=== PATIENT | female | born 1935 | race Caucasian/White ===

== ENCOUNTER 2022-03-24 14:04 | Inpatient (IN) | payer MEDICARE, BC ==
[~2022-03-24] VITALS: Ht 154.9 cm; Wt 67.6 kg
[2022-03-24 16:11] VITALS: BP 130/66
--- NOTE | 2022-03-24 17:00 | NUR ---
patient was a direct admit from [facility] arrived to unit at 1630 . patient is alert and oriented x 1-2 some confusion noted. patient is able to make some needs known. patient currently has an aspen collar in place, no skin breakdown noted, orders from [facility] are to keep collar on when out of bed and can remove in bed for short periods of time for c1 fracture. patient with limited neck movement, no c.o neck pain at this time. lungs are clear bilateral, rr even and non-labored, 0 episode of sob at this time. abdomen is soft and nontender, active bowel sounds present in 4 quadrants. no c.o bladder patient. patient also has an acute pelvic fracture used sliding board to transfer patient from [facility] to bed with 4 person transfer. patient is maximum assist at this time. upon admission vital signs wnl, no c/o pain. Spoke with DPMarilynn Orosco all questions answered. currently sister and caregiver at bedsides all needs met
[2022-03-24] MEDS ORDERED: REMEDY ESSENTIAL ZINC PASTE 113 GM TOP PRN (17:15)
[2022-03-24] MEDS ORDERED: OMEG1CAP GT (18:23)
[2022-03-24] MEDS ORDERED: IBAN150T16 PO (18:23)
[2022-03-24] MEDS ORDERED: MULT-213 PO (18:23)
[2022-03-24] MEDS ORDERED: FLUT16SP BNOSTRILS (18:23)
[2022-03-24] MEDS ORDERED: ESCI20TA PO (18:23)
[2022-03-24] MEDS ORDERED: ENOX40DI SQ (18:23)
[2022-03-24] MEDS ORDERED: ATOR20TA PO (18:23)
[2022-03-24] MEDS ORDERED: TIOT18CA3 IH (18:33)
[2022-03-24] MEDS ORDERED: ACET-73 PO (18:33)
[2022-03-24] MEDS ORDERED: PANT40TA49 PO (18:33)
[2022-03-24] MEDS ORDERED: SENN-301 PO (18:33)
[2022-03-24] MEDS ORDERED: GABA-532 PO (18:33)
[2022-03-24] MEDS ORDERED: QUET25TA PO ×2 (18:33)
[2022-03-24] MEDS ORDERED: CHOL1CAP6 PO (18:33)
[2022-03-24] MEDS ORDERED: LABE100T5 PO (18:33)
[2022-03-24] MEDS ORDERED: LOSA100T31 PO (18:33)
[2022-03-24] MEDS ORDERED: HYDR-894 PO (18:33)
[2022-03-24] MEDS ORDERED: LEVO75TA7 PO (18:33)
[2022-03-24 20:49] VITALS: BP 175/73
--- NOTE | 2022-03-24 21:00 | NUR ---
Resting in bed upon initial rounds. AAOx1-2 Confused and disoriented at time. VSS Admitted for pelvic fracture. Needs attended. Patient also has a C1 compression fracture, wears a cervical collar at all times. VSS. No acute distress noted. All due meds given without difficulty. On 3L O2 via nasal cannula, pulse ox 95% RA. Incontinent of bowel and bladder. Kept clean and dry. Fall precautions noted. Kept comfortable.
[2022-03-25 04:20] VITALS: BP 156/75
[2022-03-25 07:30] VITALS: BP 176/71
[2022-03-25] MEDS ORDERED: QUETIAPINE FUMARATE 25 MG TABLET PO PRN ×2 (10:15→10:45)
[2022-03-25] MEDS: hydrALAZINE HCL 25 MG TABLET PO SCH ×2 (10:38→22:03)
[2022-03-25] MEDS: LABETALOL HCL 100 MG TABLET PO SCH ×2 (10:46→20:37)
[2022-03-25] MEDS ORDERED: QUETIAPINE FUMARATE 25 MG TABLET PO SCH ×2 (11:00→18:00)
--- NOTE | 2022-03-25 11:18 | NUR ---
INTERDISCIPLINARY TEAM CONFERENCE
--- NOTE | 2022-03-25 11:30 | NUR ---
Received patient in bed resting upon initial rounds. AAOx1-2 Confused and disoriented at time. Admitted for pelvic fracture. Patient also has a C1 compression fracture,with order to wears a cervical collar at all times. No acute distress noted. All due Meds reconcile by DR Bautista Pt noted with high B/P=176/71 MD made aware Meds given as order . On 3L O2 via nasal cannula, o2 sat 97% . Incontinent of bowel and bladder had MB x1. instructional supervisor at bed side. Kept clean and dry. Fall precautions noted. Kept comfortable,will continue to monitor closely
[2022-03-25] MEDS: ESCITALOPRAM OXALATE 10 MG TABLET PO SCH (11:46)
[2022-03-25] MEDS: ENOXAPARIN SODIUM 30 MG/0.3 ML DISP.SYRIN SQ SCH (11:47)
[2022-03-25] MEDS ORDERED: ACETAMINOPHEN ES 500 MG TABLET- SA PATIENTS-PAIN ONLY PO SCH ×2 (12:00)
[2022-03-25 13:00] VITALS: BP 168/49
--- NOTE | 2022-03-25 13:00 | NUR ---
Pt resting in bed HOB 30 degree no s/s of acute distress B/P recheck 168/49 HR= 68 made aware
[2022-03-25] MEDS: GABAPENTIN 100 MG CAPSULE PO SCH ×2 (13:15→17:07)
[2022-03-25 16:00] VITALS: BP 177/77
--- NOTE | 2022-03-25 16:00 | NUR ---
Pt continue to monitor for high B/P =177/77 HR= 78 Pt noted with order for Losartan 100 mg given as per ordered DR Bautista called back with new order for Clonidine 0.1 mg PRN for SBP grater than 160. will continue to monitor closely for comfort and safety
[2022-03-25] MEDS: LOSARTAN POTASSIUM 50 MG TABLET PO SCH (16:06)
[2022-03-25] MEDS: QUETIAPINE FUMARATE 25 MG TABLET PO SCH (17:07)
--- NOTE | 2022-03-25 18:00 | NUR ---
Pt B/P recheck B/P moisés to b/P=127/64 HR =84 will continue to monitor closely
[2022-03-25 18:08] VITALS: BP 127/64
[2022-03-25 20:00] VITALS: BP 150/55
[2022-03-25] MEDS: ATORVASTATIN 20 MG TABLET PO SCH (20:36)
[2022-03-26 04:00] VITALS: BP 141/61
--- NOTE | 2022-03-26 04:59 | NUR ---
Awake alert and oriented x1-2 Confused and disoriented. Cervical collar at all times. Tolerated po meds well, crushed with apple sauce. BP 150/55 at beginning of shift. Amiodarone given. Fall precautions maintained. Needs attended. Incontinent of bowel and bladder. Kept clean and dry. BM noted this shift. Repositioned for comfort. Call little within reach. Remained stable throughout. No complaints presented so far. VSS.
[2022-03-26] MEDS: LEVOTHYROXINE SODIUM 75 MCG TABLET PO SCH (06:14)
[2022-03-26] MEDS: hydrALAZINE HCL 25 MG TABLET PO SCH ×3 (06:14→21:01)
[2022-03-26] MEDS: PANTOPRAZOLE SODIUM 40 MG TABLET.DR PO SCH (06:14)
[2022-03-26 08:00] VITALS: BP 142/48
[2022-03-26] MEDS ORDERED: LOSARTAN POTASSIUM 50 MG TABLET PO SCH (09:00)
[2022-03-26] MEDS ORDERED: Medication Not On Formulary EA (Escitalopram Oxalate (Lexapro) 20 MG) PO SCH (09:00)
[2022-03-26] MEDS: ENOXAPARIN SODIUM 30 MG/0.3 ML DISP.SYRIN SQ SCH ×2 (09:00→10:41)
[2022-03-26] MEDS: OMEGA-3 FATTY ACIDS/FISH OIL CAPSULE PO SCH (09:00)
[2022-03-26] MEDS ORDERED: Medication Not On Formulary EA (Losartan Potassium 100 MG) PO SCH (09:00)
[2022-03-26] MEDS: LOSARTAN POTASSIUM 50 MG TABLET PO SCH (09:17)
[2022-03-26] MEDS: GABAPENTIN 100 MG CAPSULE PO SCH ×3 (09:18→16:52)
[2022-03-26] MEDS: ESCITALOPRAM OXALATE 10 MG TABLET PO SCH (09:19)
[2022-03-26] MEDS: LABETALOL HCL 100 MG TABLET PO SCH ×2 (09:19→21:01)
[2022-03-26] MEDS: FLUTICASONE PROP NASAL SPRAY 16 GM BOTTLE NS SCH (09:20)
--- NOTE | 2022-03-26 09:28 | NUR ---
patient refused lovenox risks and benefits explained, still refused, patient verbalized understanding of it
[2022-03-26] MEDS: ACETAMINOPHEN ES 500 MG TABLET PO PRN (10:40)
[2022-03-26] MEDS: OXYCODONE HCL 5 MG TABLET PO PRN (11:09)
--- NOTE | 2022-03-26 11:20 | NUR ---
caregiver is bedside, patient allowed to administer Lovenox, administered, patient is noncompliant with therapy, and adls, were trying to change and clean, patient screamed and yelled, stated " get out of room" used profane language toward staff.
[2022-03-26 16:00] VITALS: BP_SYST 113; BP_SYST 143; BP_DIAS 56; BP_DIAS 81
[2022-03-26] MEDS: QUETIAPINE FUMARATE 25 MG TABLET PO SCH (17:02)
--- NOTE | 2022-03-26 19:00 | NUR ---
Received patient on bed, alert, no complaint of pain, with calm behavior at this time, not in labored breathing, with cervical collar in place, safety precautions provided, call little placed within reach, with oxygen at 3L via NC, saturating at 95-97%, titrated at 2L/min to continue to monitor.
[2022-03-26 20:34] VITALS: BP 137/57
[2022-03-26] MEDS: ATORVASTATIN 20 MG TABLET PO SCH (21:00)
[2022-03-27 04:25] VITALS: BP 160/71
--- NOTE | 2022-03-27 05:40 | NUR ---
Patient O2 saturation within 95-97% with 2L via nasal cannula. Slept well , Logrolling done for repositioning. Diaper changed, skin intact.
[2022-03-27] MEDS: hydrALAZINE HCL 25 MG TABLET PO SCH ×3 (06:01→22:37)
[2022-03-27] MEDS: PANTOPRAZOLE SODIUM 40 MG TABLET.DR PO SCH (06:02)
[2022-03-27] MEDS: LEVOTHYROXINE SODIUM 75 MCG TABLET PO SCH (06:02)
[2022-03-27 06:34] VITALS: BP 145/75
[2022-03-27 07:38] VITALS: BP 131/68
[2022-03-27] MEDS: FLUTICASONE PROP NASAL SPRAY 16 GM BOTTLE NS SCH (09:08)
[2022-03-27] MEDS: LOSARTAN POTASSIUM 50 MG TABLET PO SCH (09:09)
[2022-03-27] MEDS: OMEGA-3 FATTY ACIDS/FISH OIL CAPSULE PO SCH (09:09)
[2022-03-27] MEDS: ESCITALOPRAM OXALATE 10 MG TABLET PO SCH (09:09)
[2022-03-27] MEDS: GABAPENTIN 100 MG CAPSULE PO SCH ×3 (09:09→17:14)
[2022-03-27] MEDS: LABETALOL HCL 100 MG TABLET PO SCH ×2 (09:10→20:36)
[2022-03-27] MEDS: ENOXAPARIN SODIUM 30 MG/0.3 ML DISP.SYRIN SQ SCH (09:11)
--- NOTE | 2022-03-27 14:37 | NUR ---
INDIVIDUALIZED PLAN OF CARE
[2022-03-27 15:03] VITALS: BP 141/56
--- NOTE | 2022-03-27 15:06 | NUR ---
Received patient on bed, alert oriented 1-2 with periods of confusion, denies of pain,when asked , respiration even and unlabored no SOB noted, with cervical collar in place, safety precautions provided, call little placed within reach, with oxygen at 3L via NC, saturating at 95-97%, titrated at 2L/Min will continue to monitor Pt refused PT at this time attempt x 3 continue to refused got upset and got aggressive and verbally abused.reassure Pt and will monitor home care provider at bed side .
[2022-03-27] MEDS: QUETIAPINE FUMARATE 25 MG TABLET PO SCH (17:14)
[2022-03-27 20:14] VITALS: BP 143/56
[2022-03-27] MEDS: ATORVASTATIN 20 MG TABLET PO SCH (20:36)
[2022-03-28 04:33] VITALS: BP 185/69
--- NOTE | 2022-03-28 04:44 | NUR ---
Patient BP 185/69, HR 78, recheck BP 161/65, Patient refused to take medication for elevated BP, patient verbally aggressive, uncooperative with care, despite explanation the need for BP meds and risk/benefit of the medication refused the meds, gets agitated, and verbally abusive. will cont to monitor.
--- NOTE | 2022-03-28 05:55 | NUR ---
Patient change her mind, and took all her medications, BP meds for elevated BP, patient has episode of resistive with care, uncooperative with care, explained procedure before the care, but still refused, handle patient gently, kept clean dry and comfortable.
--- NOTE | 2022-03-28 05:58 | NUR ---
Patient alert but forgetful, will continue to monitor BP, patient denies pain when ask if she in pain, cont to monitor.
[2022-03-28] MEDS: hydrALAZINE HCL 25 MG TABLET PO SCH ×3 (06:01→22:38)
[2022-03-28] MEDS: LEVOTHYROXINE SODIUM 75 MCG TABLET PO SCH (06:01)
[2022-03-28] MEDS: PANTOPRAZOLE SODIUM 40 MG TABLET.DR PO SCH (06:02)
[2022-03-28 06:59] VITALS: BP 155/59
[2022-03-28] MEDS: OXYCODONE HCL 5 MG TABLET PO PRN (07:50)
[2022-03-28] MEDS: ESCITALOPRAM OXALATE 10 MG TABLET PO SCH (08:07)
[2022-03-28] MEDS: LOSARTAN POTASSIUM 50 MG TABLET PO SCH (08:08)
[2022-03-28] MEDS: LABETALOL HCL 100 MG TABLET PO SCH ×2 (08:08→20:11)
[2022-03-28] MEDS: FLUTICASONE PROP NASAL SPRAY 16 GM BOTTLE NS SCH (08:09)
[2022-03-28] MEDS: OMEGA-3 FATTY ACIDS/FISH OIL CAPSULE PO SCH (08:09)
[2022-03-28] MEDS: GABAPENTIN 100 MG CAPSULE PO SCH ×3 (08:09→16:08)
[2022-03-28] MEDS: ENOXAPARIN SODIUM 30 MG/0.3 ML DISP.SYRIN SQ SCH (08:10)
[2022-03-28 09:03] VITALS: BP 108/42
[2022-03-28] MEDS: MIRALAX 17 GM POWD.PACK PO PRN (14:36)
[2022-03-28] MEDS: SENNOSIDES/DOCUSATE SODIUM TABLET PO PRN (14:36)
[2022-03-28 15:05] VITALS: BP 131/56
--- NOTE | 2022-03-28 19:31 | NUR ---
Received patient on asleep. Shows no signs of labored breathing, with cervical collar in place. Safety precautions initiated. Will continue to monitor.
[2022-03-28] MEDS: ATORVASTATIN 20 MG TABLET PO SCH (20:11)
[2022-03-28 20:22] VITALS: BP 163/84
[2022-03-29 04:24] VITALS: BP 164/72
[2022-03-29] MEDS: hydrALAZINE HCL 25 MG TABLET PO SCH ×3 (06:23→22:16)
[2022-03-29] MEDS: PANTOPRAZOLE SODIUM 40 MG TABLET.DR PO SCH (06:23)
[2022-03-29] MEDS: LEVOTHYROXINE SODIUM 75 MCG TABLET PO SCH (06:25)
--- NOTE | 2022-03-29 06:39 | NUR ---
Patient slept through the night with frequent episodes of confusion. IV access patent and intact. Compliant with patient medication. Elevated BP noted, scheduled Hydralazine given as ordered. Safety precautions maintained. Will endorse to day shift.
[2022-03-29 07:30] VITALS: BP 149/44
[2022-03-29] MEDS ORDERED: MODAFINIL 100 MG TABLET PO SCH (09:00)
[2022-03-29] MEDS: LOSARTAN POTASSIUM 50 MG TABLET PO SCH (09:20)
[2022-03-29] MEDS: OMEGA-3 FATTY ACIDS/FISH OIL CAPSULE PO SCH (09:20)
[2022-03-29] MEDS: FLUTICASONE PROP NASAL SPRAY 16 GM BOTTLE NS SCH (09:20)
[2022-03-29] MEDS: LABETALOL HCL 100 MG TABLET PO SCH ×2 (09:22→20:37)
[2022-03-29] MEDS: MODAFINIL 100 MG TABLET PO SCH (09:22)
[2022-03-29] MEDS: ESCITALOPRAM OXALATE 10 MG TABLET PO SCH (09:22)
[2022-03-29] MEDS: ENOXAPARIN SODIUM 30 MG/0.3 ML DISP.SYRIN SQ SCH (09:23)
[2022-03-29] MEDS: GABAPENTIN 100 MG CAPSULE PO SCH ×3 (09:59→16:48)
[2022-03-29 16:00] VITALS: BP 141/69
--- NOTE | 2022-03-29 17:47 | NUR ---
Patient is alert, with episodes of confusion. No complain of pain. Compliant with medications. Attended to her needs. Fall precaution maintained. Neck collar in place. brick machine operator at bedside.
[2022-03-29] MEDS: MIRALAX 17 GM POWD.PACK PO PRN (18:45)
[2022-03-29 19:07] LABS: HEMATOCRIT 29.9 % (31.2-41.9); MEAN CORPUSCULAR HEMOGLOBIN 28.6 uug (24.7-32.8); MEAN CORPUSCULAR VOLUME 85.2 fL (75.5-95.3); PLATELET COUNT (AUTO) 302 K/uL (179-408)
[2022-03-29 19:10] LABS: CARBON DIOXIDE 27 mmol/L (21-32); CHLORIDE 96 mmol/L (98-107); CREATININE 1.8 mg/dL (0.6-1.3); GLUCOSE 115 mg/dL (74-106); UREA NITROGEN, BLOOD 45 mg/dL (7-18)
--- NOTE | 2022-03-29 19:30 | NUR ---
NSG: Received patient lying on bed, alert and oriented to name only, no complaint of pain, with calm behavior at this time, respiration even and unlabored. patient noted with cervical collar in neck, safety precautions provided, call little placed within reach. continue to monitor.
[2022-03-29 20:27] VITALS: BP 169/58
[2022-03-29] MEDS: ATORVASTATIN 20 MG TABLET PO SCH (20:36)
[2022-03-29] MEDS: SENNOSIDES/DOCUSATE SODIUM TABLET PO PRN (20:36)
[2022-03-30 04:16] VITALS: BP 161/64
--- NOTE | 2022-03-30 04:30 | NUR ---
clonidine 0.1 mg po prn given for b/p 161/64 hr 76
[2022-03-30] MEDS: CLONIDINE HCL 0.1 MG TABLET PO PRN (04:33)
[2022-03-30] MEDS: PANTOPRAZOLE SODIUM 40 MG TABLET.DR PO SCH (06:03)
[2022-03-30] MEDS: LEVOTHYROXINE SODIUM 75 MCG TABLET PO SCH (06:03)
[2022-03-30] MEDS: hydrALAZINE HCL 25 MG TABLET PO SCH ×3 (06:03→21:01)
--- NOTE | 2022-03-30 06:09 | NUR ---
slept well through the night. no c/o pain or discomfort at this time. call light w/in reach.
[2022-03-30 07:31] VITALS: BP 122/60
[2022-03-30] MEDS: OMEGA-3 FATTY ACIDS/FISH OIL CAPSULE PO SCH (08:41)
[2022-03-30] MEDS: GABAPENTIN 100 MG CAPSULE PO SCH ×3 (08:41→17:29)
[2022-03-30] MEDS: LABETALOL HCL 100 MG TABLET PO SCH ×2 (08:41→21:01)
[2022-03-30] MEDS: ESCITALOPRAM OXALATE 10 MG TABLET PO SCH (08:41)
[2022-03-30] MEDS: MODAFINIL 100 MG TABLET PO SCH (08:42)
[2022-03-30] MEDS: FLUTICASONE PROP NASAL SPRAY 16 GM BOTTLE NS SCH (08:42)
[2022-03-30] MEDS: LOSARTAN POTASSIUM 50 MG TABLET PO SCH (08:42)
[2022-03-30] MEDS: ENOXAPARIN SODIUM 30 MG/0.3 ML DISP.SYRIN SQ SCH (08:44)
[2022-03-30 16:00] VITALS: BP 156/57
[2022-03-30 20:00] VITALS: BP 156/61
[2022-03-30] MEDS: ATORVASTATIN 20 MG TABLET PO SCH (20:59)
[2022-03-31 04:00] VITALS: BP 152/61
[2022-03-31] MEDS: hydrALAZINE HCL 25 MG TABLET PO SCH ×3 (05:15→21:32)
[2022-03-31] MEDS: LEVOTHYROXINE SODIUM 75 MCG TABLET PO SCH (05:18)
[2022-03-31] MEDS: PANTOPRAZOLE SODIUM 40 MG TABLET.DR PO SCH (05:18)
[2022-03-31 07:33] VITALS: BP 165/65
[2022-03-31] MEDS: ENOXAPARIN SODIUM 30 MG/0.3 ML DISP.SYRIN SQ SCH (08:47)
[2022-03-31] MEDS: MODAFINIL 100 MG TABLET PO SCH (08:48)
[2022-03-31] MEDS: ESCITALOPRAM OXALATE 10 MG TABLET PO SCH (08:48)
[2022-03-31] MEDS: FLUTICASONE PROP NASAL SPRAY 16 GM BOTTLE NS SCH (08:48)
[2022-03-31] MEDS: LABETALOL HCL 100 MG TABLET PO SCH ×2 (08:49→20:22)
[2022-03-31] MEDS: GABAPENTIN 100 MG CAPSULE PO SCH ×3 (08:49→16:30)
[2022-03-31] MEDS: LOSARTAN POTASSIUM 50 MG TABLET PO SCH (08:49)
[2022-03-31] MEDS: OMEGA-3 FATTY ACIDS/FISH OIL CAPSULE PO SCH (08:50)
[2022-03-31 10:52] VITALS: BP 124/59
[2022-03-31 14:22] VITALS: BP 139/75
[2022-03-31 16:00] VITALS: BP 132/49
[2022-03-31] MEDS: ENSURE ENLIVE (VAN) 240 ML LIQUID PO SCH (16:30)
--- NOTE | 2022-03-31 18:30 | NUR ---
Patient remained stable. no acute distress identified. No pain noted. Safety measures maintained. Kept call light within reach. Frequent visual checks done. All needs attends. due meds given. will endorse to the next shift for continuity of care.
[2022-03-31 20:00] VITALS: BP 135/52
[2022-03-31] MEDS: ATORVASTATIN 20 MG TABLET PO SCH (21:32)
[2022-04-01 04:00] VITALS: BP 146/60
[2022-04-01] MEDS: hydrALAZINE HCL 25 MG TABLET PO SCH ×3 (05:38→21:07)
[2022-04-01] MEDS: PANTOPRAZOLE SODIUM 40 MG TABLET.DR PO SCH (05:38)
[2022-04-01] MEDS: LEVOTHYROXINE SODIUM 75 MCG TABLET PO SCH (05:38)
[2022-04-01 08:01] VITALS: BP 126/63
--- NOTE | 2022-04-01 08:41 | NUR ---
INTERDISCIPLINARY TEAM CONFERENCE
[2022-04-01] MEDS: LABETALOL HCL 100 MG TABLET PO SCH ×2 (09:00→20:38)
[2022-04-01] MEDS: LOSARTAN POTASSIUM 50 MG TABLET PO SCH (09:00)
[2022-04-01] MEDS: MODAFINIL 100 MG TABLET PO SCH (09:00)
[2022-04-01] MEDS: GABAPENTIN 100 MG CAPSULE PO SCH ×3 (09:00→16:54)
[2022-04-01] MEDS: ESCITALOPRAM OXALATE 10 MG TABLET PO SCH (09:00)
[2022-04-01] MEDS: OMEGA-3 FATTY ACIDS/FISH OIL CAPSULE PO SCH (09:00)
[2022-04-01] MEDS: ENOXAPARIN SODIUM 30 MG/0.3 ML DISP.SYRIN SQ SCH (09:13)
[2022-04-01] MEDS: FLUTICASONE PROP NASAL SPRAY 16 GM BOTTLE NS SCH (09:14)
[2022-04-01] MEDS: ENSURE ENLIVE (VAN) 240 ML LIQUID PO SCH ×2 (09:14→16:54)
[2022-04-01] MEDS: ACETAMINOPHEN ES 500 MG TABLET PO PRN (12:13)
[2022-04-01 15:55] VITALS: BP 164/52
--- NOTE | 2022-04-01 18:39 | NUR ---
No acute distress identified. Safety measures maintained. Kept call light within reach. Frequent visual checks done. All needs attends. due meds given. will endorse to the next shift for continuity of care.
[2022-04-01 20:00] VITALS: BP 132/46
[2022-04-01] MEDS: ATORVASTATIN 20 MG TABLET PO SCH (20:38)
[2022-04-02 04:00] VITALS: BP 137/50
[2022-04-02] MEDS: hydrALAZINE HCL 25 MG TABLET PO SCH ×3 (06:12→21:13)
[2022-04-02] MEDS: LEVOTHYROXINE SODIUM 75 MCG TABLET PO SCH (06:12)
[2022-04-02] MEDS: PANTOPRAZOLE SODIUM 40 MG TABLET.DR PO SCH (06:12)
--- NOTE | 2022-04-02 06:30 | NUR ---
Pt slept intermittently throughout the night, no significant changes noted. Due meds given and tolerated well. All needs attended. Call light placed within reach. Frequent visual checks done. Will endorse to next shift for continuity of care.
[2022-04-02 07:17] LABS: CARBON DIOXIDE 28 mmol/L (21-32); CHLORIDE 99 mmol/L (98-107); CREATININE 1.6 mg/dL (0.6-1.3); GLUCOSE 98 mg/dL (74-106); MAGNESIUM 2.3 mg/dL (1.8-2.4); POTASSIUM 5.1 mmol/L (3.5-5.1); UREA NITROGEN, BLOOD 41 mg/dL (7-18); URIC ACID 5.8 mg/dL (2.6-6.0)
[2022-04-02 08:04] VITALS: BP 123/63
[2022-04-02 08:20] LABS: THYROID STIMULATING HORMONE 2.745 mIU/mL (0.358-3.740)
[2022-04-02] MEDS: HYDROCODONE/APAP 10-325 MG TABLET PO SCH (09:00)
[2022-04-02] MEDS: FLUTICASONE PROP NASAL SPRAY 16 GM BOTTLE NS SCH (09:30)
[2022-04-02] MEDS: ESCITALOPRAM OXALATE 10 MG TABLET PO SCH (09:30)
[2022-04-02] MEDS: OMEGA-3 FATTY ACIDS/FISH OIL CAPSULE PO SCH (09:30)
[2022-04-02] MEDS: MODAFINIL 100 MG TABLET PO SCH (09:30)
[2022-04-02] MEDS: LABETALOL HCL 100 MG TABLET PO SCH ×2 (09:32→20:52)
[2022-04-02] MEDS: GABAPENTIN 100 MG CAPSULE PO SCH ×3 (09:32→16:39)
[2022-04-02] MEDS: LOSARTAN POTASSIUM 50 MG TABLET PO SCH (09:33)
[2022-04-02] MEDS: ENOXAPARIN SODIUM 30 MG/0.3 ML DISP.SYRIN SQ SCH (09:36)
[2022-04-02] MEDS: ENSURE ENLIVE (VAN) 240 ML LIQUID PO SCH ×2 (09:40→17:54)
[2022-04-02] MEDS ORDERED: HYDROCODONE/APAP 10-325 MG TABLET PO PRN (13:00)
[2022-04-02] MEDS: OXYCODONE HCL 5 MG TABLET PO PRN (14:42)
[2022-04-02 16:02] VITALS: BP 129/67
[2022-04-02 20:16] VITALS: BP 101/50
[2022-04-02] MEDS: ATORVASTATIN 20 MG TABLET PO SCH (20:51)
[2022-04-03 04:00] VITALS: BP 177/84
[2022-04-03] MEDS: LEVOTHYROXINE SODIUM 75 MCG TABLET PO SCH (06:11)
[2022-04-03] MEDS: PANTOPRAZOLE SODIUM 40 MG TABLET.DR PO SCH (06:12)
[2022-04-03] MEDS: hydrALAZINE HCL 25 MG TABLET PO SCH ×3 (06:12→21:06)
[2022-04-03] MEDS: LABETALOL HCL 100 MG TABLET PO SCH ×2 (09:41→20:19)
[2022-04-03] MEDS: OMEGA-3 FATTY ACIDS/FISH OIL CAPSULE PO SCH (09:41)
[2022-04-03] MEDS: LOSARTAN POTASSIUM 50 MG TABLET PO SCH (09:41)
[2022-04-03] MEDS: GABAPENTIN 100 MG CAPSULE PO SCH ×3 (09:42→17:38)
[2022-04-03] MEDS: HYDROCODONE/APAP 10-325 MG TABLET PO SCH (09:42)
[2022-04-03] MEDS: ESCITALOPRAM OXALATE 10 MG TABLET PO SCH (09:42)
[2022-04-03] MEDS: ENSURE ENLIVE (VAN) 240 ML LIQUID PO SCH ×2 (09:42→17:39)
[2022-04-03] MEDS: MODAFINIL 100 MG TABLET PO SCH (09:42)
[2022-04-03] MEDS: ENOXAPARIN SODIUM 30 MG/0.3 ML DISP.SYRIN SQ SCH (09:43)
[2022-04-03] MEDS: FLUTICASONE PROP NASAL SPRAY 16 GM BOTTLE NS SCH (09:44)
[2022-04-03 20:00] VITALS: BP 122/56
[2022-04-03] MEDS: ATORVASTATIN 20 MG TABLET PO SCH (20:18)
[2022-04-04 04:00] VITALS: BP 112/91
[2022-04-04] MEDS: hydrALAZINE HCL 25 MG TABLET PO SCH ×3 (06:00→21:12)
[2022-04-04] MEDS: PANTOPRAZOLE SODIUM 40 MG TABLET.DR PO SCH (06:06)
[2022-04-04] MEDS: LEVOTHYROXINE SODIUM 75 MCG TABLET PO SCH (06:06)
[2022-04-04 08:00] VITALS: BP 188/73
[2022-04-04] MEDS: GABAPENTIN 100 MG CAPSULE PO SCH ×3 (09:08→17:08)
[2022-04-04] MEDS: HYDROCODONE/APAP 10-325 MG TABLET PO SCH (09:08)
[2022-04-04] MEDS: OMEGA-3 FATTY ACIDS/FISH OIL CAPSULE PO SCH (09:08)
[2022-04-04] MEDS: ESCITALOPRAM OXALATE 10 MG TABLET PO SCH (09:09)
[2022-04-04] MEDS: LABETALOL HCL 100 MG TABLET PO SCH ×2 (09:09→20:25)
[2022-04-04] MEDS: MODAFINIL 100 MG TABLET PO SCH (09:09)
[2022-04-04] MEDS: LOSARTAN POTASSIUM 50 MG TABLET PO SCH (09:10)
[2022-04-04] MEDS: ENOXAPARIN SODIUM 30 MG/0.3 ML DISP.SYRIN SQ SCH (09:11)
[2022-04-04] MEDS: ENSURE ENLIVE (VAN) 240 ML LIQUID PO SCH ×2 (09:11→17:08)
[2022-04-04] MEDS: FLUTICASONE PROP NASAL SPRAY 16 GM BOTTLE NS SCH (09:12)
[2022-04-04 16:37] VITALS: BP 147/52
--- NOTE | 2022-04-04 19:15 | NUR ---
Received patient on bed, awake, alert, not in respiratory distress, with cervical collar in placed. No complaint of pain. Safety precautions provided, call light placed within reach .
[2022-04-04] MEDS: ATORVASTATIN 20 MG TABLET PO SCH (20:24)
[2022-04-04 20:27] VITALS: BP 157/43
--- NOTE | 2022-04-05 01:00 | NUR ---
patient woke up from sleeping, screaming that somebody slap her, reoriented patient to place, time and event happened. Patient went back to sleep. in fair condition.
[2022-04-05 04:30] VITALS: BP 175/65
--- NOTE | 2022-04-05 05:51 | NUR ---
Perineal care done, repositioned for comfort, no complaint of pain. Patient in fair condition.
[2022-04-05] MEDS: PANTOPRAZOLE SODIUM 40 MG TABLET.DR PO SCH (06:11)
[2022-04-05] MEDS: hydrALAZINE HCL 25 MG TABLET PO SCH ×3 (06:11→21:05)
[2022-04-05] MEDS: LEVOTHYROXINE SODIUM 75 MCG TABLET PO SCH (06:17)
[2022-04-05 08:02] VITALS: BP 170/66
[2022-04-05] MEDS: MODAFINIL 100 MG TABLET PO SCH (08:45)
[2022-04-05] MEDS: OMEGA-3 FATTY ACIDS/FISH OIL CAPSULE PO SCH (08:47)
[2022-04-05] MEDS: HYDROCODONE/APAP 10-325 MG TABLET PO SCH (08:47)
[2022-04-05] MEDS: GABAPENTIN 100 MG CAPSULE PO SCH ×3 (08:51→17:59)
[2022-04-05] MEDS: ESCITALOPRAM OXALATE 10 MG TABLET PO SCH (08:51)
[2022-04-05] MEDS: LOSARTAN POTASSIUM 50 MG TABLET PO SCH (08:52)
[2022-04-05] MEDS: FLUTICASONE PROP NASAL SPRAY 16 GM BOTTLE NS SCH (08:53)
[2022-04-05] MEDS: ENSURE ENLIVE (VAN) 240 ML LIQUID PO SCH ×2 (08:53→17:59)
[2022-04-05] MEDS: LABETALOL HCL 100 MG TABLET PO SCH ×2 (08:54→20:41)
[2022-04-05] MEDS: ENOXAPARIN SODIUM 30 MG/0.3 ML DISP.SYRIN SQ SCH (08:55)
[2022-04-05 16:24] VITALS: BP 149/52
--- NOTE | 2022-04-05 19:15 | NUR ---
Received patient on bed, watching TV, alert, oriented x2-3, with episode of confusion, with cervical collar in place at all times. Safety precautions provided, Call light within reach.
[2022-04-05 20:08] VITALS: BP 141/66
[2022-04-05] MEDS: ATORVASTATIN 20 MG TABLET PO SCH (20:41)
[2022-04-05] MEDS: ACETAMINOPHEN ES 500 MG TABLET PO PRN (20:42)
[2022-04-06 04:50] VITALS: BP 169/74
--- NOTE | 2022-04-06 05:38 | NUR ---
Slept well for 6 hours, no signs of distress. Perineal care done, mepilex applied to buttocks area for protection, no complaint of pain, repositioned for comfort.
[2022-04-06] MEDS: LEVOTHYROXINE SODIUM 75 MCG TABLET PO SCH (06:18)
[2022-04-06] MEDS: PANTOPRAZOLE SODIUM 40 MG TABLET.DR PO SCH (06:18)
[2022-04-06] MEDS: hydrALAZINE HCL 25 MG TABLET PO SCH ×3 (06:18→21:05)
[2022-04-06] MEDS: OXYCODONE HCL 5 MG TABLET PO PRN (06:34)
[2022-04-06 07:55] VITALS: BP 151/73
[2022-04-06] MEDS: MODAFINIL 100 MG TABLET PO SCH (10:13)
[2022-04-06] MEDS: FLUTICASONE PROP NASAL SPRAY 16 GM BOTTLE NS SCH (10:13)
[2022-04-06] MEDS: LOSARTAN POTASSIUM 50 MG TABLET PO SCH (10:17)
[2022-04-06] MEDS: GABAPENTIN 100 MG CAPSULE PO SCH ×3 (10:18→18:14)
[2022-04-06] MEDS: ESCITALOPRAM OXALATE 10 MG TABLET PO SCH (10:18)
[2022-04-06] MEDS: OMEGA-3 FATTY ACIDS/FISH OIL CAPSULE PO SCH (10:18)
[2022-04-06] MEDS: HYDROCODONE/APAP 10-325 MG TABLET PO SCH (10:18)
[2022-04-06] MEDS: ENOXAPARIN SODIUM 30 MG/0.3 ML DISP.SYRIN SQ SCH (10:19)
[2022-04-06] MEDS: LABETALOL HCL 100 MG TABLET PO SCH ×2 (10:22→20:42)
[2022-04-06] MEDS: ENSURE ENLIVE (VAN) 240 ML LIQUID PO SCH ×2 (10:24→18:18)
[2022-04-06 16:03] VITALS: BP 114/53
--- NOTE | 2022-04-06 19:15 | NUR ---
Received patient on bed. alert, no shortness of breath noted, with cervical collar in place at all times. Safety precautions provided, call light within reach.
[2022-04-06 20:18] VITALS: BP 131/55
[2022-04-06] MEDS: ACETAMINOPHEN ES 500 MG TABLET PO PRN (20:41)
[2022-04-06] MEDS: ATORVASTATIN 20 MG TABLET PO SCH (20:42)
[2022-04-07 04:18] VITALS: BP 131/60
--- NOTE | 2022-04-07 05:28 | NUR ---
Patient slept well, Repositioned for comfort. Compliant with medications. No complaint of pain. Patient in fair condition.
[2022-04-07] MEDS: hydrALAZINE HCL 25 MG TABLET PO SCH ×3 (06:13→21:04)
[2022-04-07] MEDS: LEVOTHYROXINE SODIUM 75 MCG TABLET PO SCH (06:13)
[2022-04-07] MEDS: PANTOPRAZOLE SODIUM 40 MG TABLET.DR PO SCH (06:13)
[2022-04-07 08:03] VITALS: BP 158/65
[2022-04-07] MEDS: ENOXAPARIN SODIUM 30 MG/0.3 ML DISP.SYRIN SQ SCH (08:09)
[2022-04-07] MEDS: GABAPENTIN 100 MG CAPSULE PO SCH ×3 (08:51→16:31)
[2022-04-07] MEDS: HYDROCODONE/APAP 10-325 MG TABLET PO SCH (08:51)
[2022-04-07] MEDS: OMEGA-3 FATTY ACIDS/FISH OIL CAPSULE PO SCH (08:51)
[2022-04-07] MEDS: ESCITALOPRAM OXALATE 10 MG TABLET PO SCH (08:51)
[2022-04-07] MEDS: MODAFINIL 100 MG TABLET PO SCH (08:53)
[2022-04-07] MEDS: LOSARTAN POTASSIUM 50 MG TABLET PO SCH (08:53)
[2022-04-07] MEDS: FLUTICASONE PROP NASAL SPRAY 16 GM BOTTLE NS SCH (08:53)
[2022-04-07] MEDS: ENSURE ENLIVE (VAN) 240 ML LIQUID PO SCH ×2 (08:54→16:31)
[2022-04-07] MEDS: LABETALOL HCL 100 MG TABLET PO SCH ×2 (09:02→21:04)
[2022-04-07] MEDS: MIRALAX 17 GM POWD.PACK PO PRN (09:03)
[2022-04-07 16:35] VITALS: BP 147/46
--- NOTE | 2022-04-07 17:21 | NUR ---
no events noted during shift
[2022-04-07 20:12] VITALS: BP 120/50
[2022-04-07] MEDS: ATORVASTATIN 20 MG TABLET PO SCH (21:03)
[2022-04-08 04:15] VITALS: BP 132/57
[2022-04-08] MEDS: PANTOPRAZOLE SODIUM 40 MG TABLET.DR PO SCH (05:35)
[2022-04-08] MEDS: LEVOTHYROXINE SODIUM 75 MCG TABLET PO SCH (05:36)
[2022-04-08] MEDS: hydrALAZINE HCL 25 MG TABLET PO SCH ×3 (05:36→21:39)
[2022-04-08 06:54] LABS: HEMATOCRIT 29.1 % (31.2-41.9); MEAN CORPUSCULAR HEMOGLOBIN 28.8 uug (24.7-32.8); MEAN CORPUSCULAR VOLUME 84.6 fL (75.5-95.3); PLATELET COUNT (AUTO) 467 K/uL (179-408)
[2022-04-08 07:23] LABS: CARBON DIOXIDE 28 mmol/L (21-32); CHLORIDE 98 mmol/L (98-107); CREATININE 1.6 mg/dL (0.6-1.3); GLUCOSE 99 mg/dL (74-106); POTASSIUM 4.9 mmol/L (3.5-5.1); UREA NITROGEN, BLOOD 42 mg/dL (7-18)
[2022-04-08] MEDS: ENOXAPARIN SODIUM 30 MG/0.3 ML DISP.SYRIN SQ SCH (08:17)
[2022-04-08] MEDS: MIRALAX 17 GM POWD.PACK PO PRN (08:18)
[2022-04-08] MEDS: GABAPENTIN 100 MG CAPSULE PO SCH ×3 (08:18→16:48)
[2022-04-08] MEDS: OMEGA-3 FATTY ACIDS/FISH OIL CAPSULE PO SCH (08:18)
[2022-04-08] MEDS: LABETALOL HCL 100 MG TABLET PO SCH ×2 (08:19→20:39)
[2022-04-08] MEDS: MODAFINIL 100 MG TABLET PO SCH (08:20)
[2022-04-08] MEDS: LOSARTAN POTASSIUM 50 MG TABLET PO SCH (08:20)
[2022-04-08] MEDS: ESCITALOPRAM OXALATE 10 MG TABLET PO SCH (08:20)
[2022-04-08] MEDS: HYDROCODONE/APAP 10-325 MG TABLET PO SCH (08:20)
[2022-04-08] MEDS: ENSURE ENLIVE (VAN) 240 ML LIQUID PO SCH ×2 (08:21→16:48)
[2022-04-08] MEDS: FLUTICASONE PROP NASAL SPRAY 16 GM BOTTLE NS SCH (08:21)
[2022-04-08 08:30] VITALS: BP 146/48
--- NOTE | 2022-04-08 13:41 | NUR ---
INTERDISCIPLINARY TEAM CONFERENCE
[2022-04-08 17:18] VITALS: BP 142/58
--- NOTE | 2022-04-08 18:47 | NUR ---
patient is alert, oriented x2, with episodes of confusion at times, reoriented, no events noted during shift.
[2022-04-08 20:00] VITALS: BP 110/65
[2022-04-08] MEDS: ATORVASTATIN 20 MG TABLET PO SCH (20:39)
[2022-04-09 04:39] VITALS: BP 154/65
[2022-04-09] MEDS: LEVOTHYROXINE SODIUM 75 MCG TABLET PO SCH (05:52)
[2022-04-09] MEDS: PANTOPRAZOLE SODIUM 40 MG TABLET.DR PO SCH (05:52)
[2022-04-09] MEDS: hydrALAZINE HCL 25 MG TABLET PO SCH ×3 (05:52→22:05)
[2022-04-09] MEDS: HYDROCODONE/APAP 10-325 MG TABLET PO SCH (08:02)
[2022-04-09] MEDS: MODAFINIL 100 MG TABLET PO SCH (08:02)
[2022-04-09] MEDS: OMEGA-3 FATTY ACIDS/FISH OIL CAPSULE PO SCH (08:02)
[2022-04-09] MEDS: ESCITALOPRAM OXALATE 10 MG TABLET PO SCH (08:03)
[2022-04-09] MEDS: LOSARTAN POTASSIUM 50 MG TABLET PO SCH (08:03)
[2022-04-09] MEDS: LABETALOL HCL 100 MG TABLET PO SCH ×2 (08:03→20:56)
[2022-04-09] MEDS: GABAPENTIN 100 MG CAPSULE PO SCH ×3 (08:04→16:31)
[2022-04-09] MEDS: FLUTICASONE PROP NASAL SPRAY 16 GM BOTTLE NS SCH (08:04)
[2022-04-09] MEDS: ENSURE ENLIVE (VAN) 240 ML LIQUID PO SCH ×2 (08:04→16:31)
[2022-04-09] MEDS: ENOXAPARIN SODIUM 30 MG/0.3 ML DISP.SYRIN SQ SCH (08:05)
[2022-04-09 08:06] VITALS: BP 178/60
[2022-04-09 11:09] VITALS: BP 109/38
[2022-04-09 15:34] VITALS: BP 150/54
[2022-04-09] MEDS: CLONIDINE HCL 0.1 MG TABLET PO PRN (16:31)
--- NOTE | 2022-04-09 18:51 | NUR ---
no events noted during shift
[2022-04-09 20:21] VITALS: BP 136/49
[2022-04-09] MEDS: ATORVASTATIN 20 MG TABLET PO SCH (20:56)
[2022-04-10 05:14] VITALS: BP 170/57
[2022-04-10] MEDS: hydrALAZINE HCL 25 MG TABLET PO SCH (05:37)
[2022-04-10] MEDS: PANTOPRAZOLE SODIUM 40 MG TABLET.DR PO SCH (05:37)
[2022-04-10] MEDS: LEVOTHYROXINE SODIUM 75 MCG TABLET PO SCH (05:39)
[2022-04-10 08:08] VITALS: BP 143/46
[2022-04-10] MEDS: LOSARTAN POTASSIUM 50 MG TABLET PO SCH (09:01)
[2022-04-10] MEDS: MODAFINIL 100 MG TABLET PO SCH (09:02)
[2022-04-10] MEDS: ESCITALOPRAM OXALATE 10 MG TABLET PO SCH (09:02)
[2022-04-10] MEDS: LABETALOL HCL 100 MG TABLET PO SCH (09:02)
[2022-04-10] MEDS: OMEGA-3 FATTY ACIDS/FISH OIL CAPSULE PO SCH (09:02)
[2022-04-10] MEDS: GABAPENTIN 100 MG CAPSULE PO SCH (09:02)
[2022-04-10] MEDS: FLUTICASONE PROP NASAL SPRAY 16 GM BOTTLE NS SCH (09:03)
[2022-04-10] MEDS: HYDROCODONE/APAP 10-325 MG TABLET PO SCH (09:03)
[2022-04-10] MEDS: ENSURE ENLIVE (VAN) 240 ML LIQUID PO SCH (09:04)
[2022-04-10] MEDS: ENOXAPARIN SODIUM 30 MG/0.3 ML DISP.SYRIN SQ SCH (09:06)
[2022-04-10 15:16] VITALS: BP 123/67
--- NOTE | 2022-04-10 15:46 | NUR ---
d/c to [facility]. left report over phone with alfred. skin pics taken. d/c instructions given to warehouse incentive selector and alfred
== END 2022-04-10 15:00 | DRG 560 ==
PROVIDERS: ADMIT Physical Medicine & Rehabilitation Pain Medicine; ATTEND Physical Medicine & Rehabilitation Pain Medicine
DX: S32.810D Multiple fractures of pelvis with stable disruption of pelvic ring, subsequent encounter for fracture with routine healing (principal); N17.9 Acute kidney failure, unspecified; E87.1 Hypo-osmolality and hyponatremia; S12.000D Unspecified displaced fracture of first cervical vertebra, subsequent encounter for fracture with routine healing; W18.30XD Fall on same level, unspecified, subsequent encounter; E03.9 Hypothyroidism, unspecified; E11.22 Type 2 diabetes mellitus with diabetic chronic kidney disease; N18.9 Chronic kidney disease, unspecified; M81.0 Age-related osteoporosis without current pathological fracture; I12.9 Hypertensive chronic kidney disease with stage 1 through stage 4 chronic kidney disease, or unspecified chronic kidney disease; F39 Unspecified mood [affective] disorder; H81.09 Meniere's disease, unspecified ear; E78.5 Hyperlipidemia, unspecified; M85.88 Other specified disorders of bone density and structure, other site; F03.90 Unspecified dementia, unspecified severity, without behavioral disturbance, psychotic disturbance, mood disturbance, and anxiety; M19.90 Unspecified osteoarthritis, unspecified site; R29.6 Repeated falls; Z88.1 Allergy status to other antibiotic agents
CPT/HCPCS: 36415; 71045; 72125; 76770; 83735; 84100; 84443; 84550; 85025; 97161; 97535-GO-CO; A6209; A9150; J1650; J3535

== ENCOUNTER 2025-05-11 10:30 | Inpatient (IN) | payer MEDICARE, BC ==
[~2025-05-11] VITALS: Ht 154.9 cm; Wt 66.7 kg
[~2025-05-11 10:30] MED LIST: ACET-73 PO; ATOR20TA PO; CHOL1CAP6 PO; ENOX40DI SQ; ESCI20TA PO; FLUT16SP BNOSTRILS; GABA-532 PO; HYDR-894 PO; IBAN150T16 PO; LABE100T5 PO; LEVO75TA7 PO; LOSA100T31 PO; MULT-213 PO; OMEG1CAP GT; PANT40TA49 PO; QUET25TA PO; SENN-301 PO; TIOT18CA3 IH
[2025-05-11 11:30] LABS: BASOPHILS # (AUTO) 0.1 K/UL (0.0-0.2); BASOPHILS % (AUTO) 1.4 % (0.0-2.0); DIFFERENTIAL COMMENT 0; EOSINOPHILS # (AUTO) 0.5 K/uL (0.0-0.7); EOSINOPHILS % (AUTO) 9.6 % (0.0-7.0); HEMATOCRIT 34.4 % (31.2-41.9); HEMOGLOBIN 11.2 g/dL (10.9-14.3); LYMPHOCYTES # (AUTO) 1.3 K/uL (0.8-4.8); LYMPHOCYTES % (AUTO) 26.3 % (20.5-51.5); MEAN CORPUSCULAR HEMOGLOBIN 28.1 uug (24.7-32.8); MEAN CORPUSCULAR HGB CONC 33 g/dL (32.3-35.6); MEAN CORPUSCULAR VOLUME 86.2 fL (75.5-95.3); MONOCYTES # (AUTO) 0.4 K/uL (0.1-1.30); MONOCYTES % (AUTO) 7.4 % (0.0-11.0); NEUTROPHILS # (AUTO) 2.7 K/uL (1.8-8.9); NEUTROPHILS % (AUTO) 55.3 % (38.5-71.5); PLATELET COUNT (AUTO) 284 K/uL (179-408); RED BLOOD CELL COUNT(AUTO) 3.99 MIL/uL (3.63-4.92); RED CELL DISTRIBUTION WIDTH 15.3 % (12.3-17.7); WHITE BLOOD COUNT (AUTO) 4.8 K/uL (3.8-11.8)
[2025-05-11 11:31] LABS: CALCIUM 8.5 mg/dL (8.5-10.1); CARBON DIOXIDE 29 mmol/L (21-32); CHLORIDE 103 mmol/L (98-107); CREATININE 1.5 mg/dL (0.6-1.3); GLUCOSE 81 mg/dL (74-106); POTASSIUM 4.9 mmol/L (3.5-5.1); SODIUM SERUM 139 mmol/L (136-145); UREA NITROGEN, BLOOD 30 mg/dL (7-18)
[2025-05-11 11:37] LABS: ALANINE AMINOTRANSFERASE 17 U/L (14-59); ALBUMIN 3.2 g/dL (3.4-5.0); ALKALINE PHOSPHATASE 78 U/L (50-136); ASPARTATE AMINOTRANSFERASE 13 U/L (15-37); BILIRUBIN,DIRECT 0.1 mg/dL (0.0-0.2); BILIRUBIN,TOTAL 0.4 mg/dL (0.2-1.0); TOTAL PROTEIN, SERUM 6.3 g/dL (6.4-8.2)
[2025-05-11 11:38] LABS: *BILIRUBIN,URIN NEGATIVE (NEGATIVE); *BLOOD, URINE 1+ (NEGATIVE); *CLARITY,URINE CLEAR (CLEAR); *COLOR,URINE YELLOW (YELLOW); *KETONES,URINE NEGATIVE (NEGATIVE); *PROTEIN,URINE 1+ (NEGATIVE); *UROBILINOGEN,URINE 0.2 E.U./dl (NORMAL); LEUKOCYTE ESTERASE ,URINE 1+ (NEGATIVE); NITRITE, URINE POSITIVE (NEGATIVE); PH,URINE 7.5 (5.0-8.0); UGLUCOSE NEGATIVE (NEGATIVE)
[2025-05-11 11:47] LABS: BACTERIA,URINE MANY /HPF (NONE SEEN); RBC,URINE 20-50 /HPF (0-3); SQUAMOUS EPITHELIAL CELL,UR FEW /HPF (NONE SEEN); WBC,URINE 50-80 /HPF (0-3)
[2025-05-11] MEDS ORDERED: IV NORMAL SALINE 1000 ML BAG IV ONE (12:00)
[2025-05-11 12:06] LABS: THYROID STIMULATING HORMONE 4.177 mIU/mL (0.358-3.740)
[2025-05-11] MEDS ORDERED: CEFTRIAXONE /D5W 50ML IVPB **ER PYXIS IV ONE (12:10)
[2025-05-11] MEDS: CEFTRIAXONE 1 G in IV DEXTROSE 5% 50 ML IV ONE (12:11)
[2025-05-11 12:22] LABS: MAGNESIUM 2.1 mg/dL (1.8-2.4)
[2025-05-11] MEDS ORDERED: ACETAMINOPHEN 325 MG TABLET PO PRN (14:00)
[2025-05-11] MEDS ORDERED: MAGNESIUM HYDROXIDE 30 ML LIQUID UDC PO PRN (14:00)
[2025-05-11] MEDS ORDERED: REMEDY ESSENTIAL ZINC PASTE 113 GM TP PRN (14:00)
[2025-05-11] MEDS ORDERED: ONDANSETRON 4 MG/2 ML VIAL IV PRN (14:00)
[2025-05-11 15:00] VITALS: BP 202/76; TEMP 97.4; O2SAT 94
[2025-05-11] MEDS: LABETALOL HCL 100 MG TABLET PO SCH (15:36)
[2025-05-11] MEDS: LOSARTAN POTASSIUM 50 MG TABLET PO SCH (15:40)
[2025-05-11] MEDS: IV NS 1000 ML 1,000 ML IV PRN (15:44)
[2025-05-11] MEDS: GABAPENTIN 100 MG CAPSULE PO SCH (16:20)
[2025-05-11 16:53] VITALS: BP 151/70
[2025-05-11] MEDS ORDERED: [UNRECOGNIZED DRUG - MIXTURE] PO SCH (17:00)
[2025-05-11] MEDS ORDERED: LABETALOL HCL 100 MG TABLET PO SCH (17:00)
[2025-05-11] MEDS ORDERED: QUET25TA PO ×2 (18:09)
[2025-05-11] MEDS: SENNOSIDES/DOCUSATE SODIUM TABLET PO SCH (18:32)
[2025-05-11 19:30] VITALS: BP 130/64; TEMP 97.9; O2SAT 96
[2025-05-11] MEDS ORDERED: QUETIAPINE FUMARATE 25 MG TABLET PO SCH (21:00)
[2025-05-11] MEDS: ATORVASTATIN 20 MG TABLET PO SCH (21:27)
[2025-05-11] MEDS: QUETIAPINE FUMARATE 25 MG TABLET PO SCH (21:27)
[2025-05-12 00:46] VITALS: BP 130/64; TEMP 97.9; O2SAT 96
[2025-05-12 05:57] VITALS: BP 178/71; TEMP 98.8; O2SAT 96
[2025-05-12] MEDS: LEVOTHYROXINE SODIUM 88 MCG TABLET PO SCH (06:14)
[2025-05-12] MEDS: PANTOPRAZOLE SODIUM 40 MG TABLET.DR PO SCH (06:14)
[2025-05-12] MEDS ORDERED: LEVOTHYROXINE SODIUM 75 MCG TABLET PO SCH (07:00)
[2025-05-12 07:12] LABS: BASOPHILS % (AUTO) 1.1 % (0.0-2.0); EOSINOPHILS # (AUTO) 0.4 K/uL (0.0-0.7); EOSINOPHILS % (AUTO) 9.7 % (0.0-7.0); LYMPHOCYTES # (AUTO) 1.5 K/uL (0.8-4.8); LYMPHOCYTES % (AUTO) 37.2 % (20.5-51.5); MEAN CORPUSCULAR HEMOGLOBIN 28.7 uug (24.7-32.8); MEAN CORPUSCULAR HGB CONC 34 g/dL (32.3-35.6); MEAN CORPUSCULAR VOLUME 85.7 fL (75.5-95.3); MONOCYTES # (AUTO) 0.4 K/uL (0.1-1.30); NEUTROPHILS # (AUTO) 1.7 K/uL (1.8-8.9); PLATELET COUNT (AUTO) 204 K/uL (179-408); RED BLOOD CELL COUNT(AUTO) 3.85 MIL/uL (3.63-4.92); RED CELL DISTRIBUTION WIDTH 15.1 % (12.3-17.7)
[2025-05-12 07:15] LABS: DIFFERENTIAL COMMENT 1
[2025-05-12 07:22] LABS: CARBON DIOXIDE 29 mmol/L (21-32); CHLORIDE 107 mmol/L (98-107); CREATININE 1.4 mg/dL (0.6-1.3); GLUCOSE 81 mg/dL (74-106); MAGNESIUM 2.1 mg/dL (1.8-2.4); PHOSPHOROUS 3.3 mg/dL (2.5-4.9); POTASSIUM 4.6 mmol/L (3.5-5.1); SODIUM SERUM 141 mmol/L (136-145); UREA NITROGEN, BLOOD 26 mg/dL (7-18)
[2025-05-12] MEDS: ESCITALOPRAM OXALATE 10 MG TABLET PO SCH (08:02)
[2025-05-12] MEDS: MULTIVIT, IRON, MIN NO. 8, FA TABLET PO SCH (08:02)
[2025-05-12] MEDS: QUETIAPINE FUMARATE 25 MG TABLET PO SCH (08:04)
[2025-05-12] MEDS ORDERED: Medication Not On Formulary EA (Escitalopram Oxalate (Lexapro) 20 MG) PO SCH (09:00)
[2025-05-12] MEDS ORDERED: Medication Not On Formulary EA (Multivitamins W-Minerals (Multivitamin With Minerals) 1 PO SCH (09:00)
[2025-05-12] MEDS ORDERED: Medication Not On Formulary EA (Losartan Potassium 100 MG) PO SCH (09:00)
[2025-05-12] MEDS ORDERED: OMEGA-3 FATTY ACIDS/FISH OIL CAPSULE GT SCH (09:00)
[2025-05-12] MEDS ORDERED: FLUTICASONE PROP NASAL SPRAY 16 GM BOTTLE NS SCH (09:00)
[2025-05-12 10:56] VITALS: BP 139/46; TEMP 98.4; O2SAT 96
[2025-05-12] MEDS: CEFTRIAXONE 1 G in IV DEXTROSE 5% 50 ML IV SCH (11:06)
[2025-05-12 15:48] LABS: *BILIRUBIN,URIN NEGATIVE (NEGATIVE); *CLARITY,URINE CLEAR (CLEAR); *COLOR,URINE YELLOW (YELLOW); *KETONES,URINE NEGATIVE (NEGATIVE); *PROTEIN,URINE NEGATIVE (NEGATIVE); *UROBILINOGEN,URINE 0.2 E.U./dl (NORMAL); LEUKOCYTE ESTERASE ,URINE 2+ (NEGATIVE); NITRITE, URINE NEGATIVE (NEGATIVE); PH,URINE 7.5 (5.0-8.0); UGLUCOSE NEGATIVE (NEGATIVE)
[2025-05-12 15:50] LABS: *BLOOD, URINE TRACE (NEGATIVE)
[2025-05-12 15:54] LABS: BACTERIA,URINE FEW /HPF (NONE SEEN); RBC,URINE 0-3 /HPF (0-3); SQUAMOUS EPITHELIAL CELL,UR FEW /HPF (NONE SEEN)
[2025-05-12 15:55] LABS: *CREATININE,URINE 30.3 mg/dL (30-125); *URINE TOTAL PROTEIN RANDOM 8.2 mg/dL (<150/24HR)
[2025-05-12 16:19] VITALS: BP 179/61; TEMP 97.4; O2SAT 95
[2025-05-12] MEDS: CLONIDINE HCL 0.1 MG TABLET PO PRN (17:10)
[2025-05-12 17:52] VITALS: BP 160/63
[2025-05-12 19:20] VITALS: BP 161/68; TEMP 98.2; O2SAT 94
[2025-05-13] VITALS (8 sets, daily range): BP systolic 144–166; BP diastolic 46–72; TEMP 94.8–98.9; O2SAT 95–98
[2025-05-13 07:18] LABS: BASOPHILS % (AUTO) 1.1 % (0.0-2.0); EOSINOPHILS # (AUTO) 0.3 K/uL (0.0-0.7); EOSINOPHILS % (AUTO) 8.2 % (0.0-7.0); HEMATOCRIT 33.3 % (31.2-41.9); LYMPHOCYTES # (AUTO) 1.5 K/uL (0.8-4.8); LYMPHOCYTES % (AUTO) 35.4 % (20.5-51.5); MEAN CORPUSCULAR HEMOGLOBIN 28.2 uug (24.7-32.8); MEAN CORPUSCULAR HGB CONC 33 g/dL (32.3-35.6); MEAN CORPUSCULAR VOLUME 85.2 fL (75.5-95.3); MONOCYTES # (AUTO) 0.4 K/uL (0.1-1.30); MONOCYTES % (AUTO) 9.6 % (0.0-11.0); NEUTROPHILS # (AUTO) 1.9 K/uL (1.8-8.9); NEUTROPHILS % (AUTO) 45.7 % (38.5-71.5); PLATELET COUNT (AUTO) 193 K/uL (179-408); RED CELL DISTRIBUTION WIDTH 15.1 % (12.3-17.7); WHITE BLOOD COUNT (AUTO) 4.2 K/uL (3.8-11.8)
[2025-05-13 07:31] LABS: ALANINE AMINOTRANSFERASE 16 U/L (14-59); ALKALINE PHOSPHATASE 73 U/L (50-136); ASPARTATE AMINOTRANSFERASE 21 U/L (15-37); BILIRUBIN,TOTAL 0.3 mg/dL (0.2-1.0); CALCIUM 8.8 mg/dL (8.5-10.1); CARBON DIOXIDE 28 mmol/L (21-32); CHLORIDE 110 mmol/L (98-107); CREATINE KINASE, TOTAL 167 U/L (26-192); CREATININE 1.4 mg/dL (0.6-1.3); GLUCOSE 88 mg/dL (74-106); PHOSPHOROUS 3.8 mg/dL (2.5-4.9); POTASSIUM 4.2 mmol/L (3.5-5.1); SODIUM SERUM 144 mmol/L (136-145); UREA NITROGEN, BLOOD 25 mg/dL (7-18)
[2025-05-13 07:35] LABS: DIFFERENTIAL COMMENT 1
[2025-05-14 05:00] VITALS: BP 124/55; TEMP 98.9; O2SAT 95
[2025-05-14 07:05] LABS: CALCIUM 8.7 mg/dL (8.5-10.1); CARBON DIOXIDE 26 mmol/L (21-32); CHLORIDE 108 mmol/L (98-107); CREATININE 1.4 mg/dL (0.6-1.3); GLUCOSE 98 mg/dL (74-106); POTASSIUM 4.6 mmol/L (3.5-5.1); SODIUM SERUM 142 mmol/L (136-145); UREA NITROGEN, BLOOD 26 mg/dL (7-18)
[2025-05-14] MEDS: CEphaleXIN 500 MG CAPSULE PO SCH (08:42)
[2025-05-14 09:09] LABS: PTH, INTACT 70 pg/mL (15-65)
[2025-05-14] MEDS ORDERED: ESCI-9 PO (10:23)
[2025-05-14] MEDS ORDERED: LABE100T15 PO (10:23)
[2025-05-14] MEDS ORDERED: LEVO88TA5 PO (10:23)
[2025-05-14] MEDS ORDERED: CEPH500C2 PO (10:23)
[2025-05-14] MEDS ORDERED: Multivit, Iron, Min No. 8, Fa PO (10:23)
[2025-05-14] MEDS ORDERED: LOSA50TA3 PO (10:23)
[2025-05-14 11:34] VITALS: BP 169/73; TEMP 98.6; O2SAT 97
[2025-05-14 14:06] VITALS: BP 167/56
== END 2025-05-14 15:35 | DRG 689 ==
LOC: ER 10:30 → MEDSURG3 14:30
PROVIDERS: ADMIT Nurse Practitioner Acute Care; ATTEND Nurse Practitioner Acute Care
DX: N39.0 Urinary tract infection, site not specified (principal); G92.8 Other toxic encephalopathy; N17.0 Acute kidney failure with tubular necrosis; E44.0 Moderate protein-calorie malnutrition; F03.94 Unspecified dementia, unspecified severity, with anxiety; B96.20 Unspecified Escherichia coli [E. coli] as the cause of diseases classified elsewhere; R31.9 Hematuria, unspecified; E78.5 Hyperlipidemia, unspecified; E03.9 Hypothyroidism, unspecified; Z79.890 Hormone replacement therapy; E88.09 Other disorders of plasma-protein metabolism, not elsewhere classified; E86.0 Dehydration; I12.9 Hypertensive chronic kidney disease with stage 1 through stage 4 chronic kidney disease, or unspecified chronic kidney disease; N18.9 Chronic kidney disease, unspecified; F99 Mental disorder, not otherwise specified; Z79.899 Other long term (current) drug therapy; K21.9 Gastro-esophageal reflux disease without esophagitis
CPT/HCPCS: 36415; 71045; 83605; 83735; 83970; 84100; 84155; 84165; 84300; 84443; 84484; 85025; 85730; 87077; 87086; 93005; C1758; G0378; J0696; J7040